=== PATIENT | male | born 1995 | race Asian ===

== ENCOUNTER 2016-12-12 15:12 | Emergency (ER) | payer OTHER ==
[~2016-12-12] VITALS: Ht 170.2 cm; Wt 74.8 kg
[2016-12-12 15:12] VITALS: BP 122/61
== END 2016-12-12 17:01 | disposition home or self-care (01) ==
LOC: M ED 16:10
DX: S83.422A Sprain of lateral collateral ligament of left knee, initial encounter (principal); W51.XXXA Accidental striking against or bumped into by another person, initial encounter; Y92.830 Public park as the place of occurrence of the external cause; Y93.67 Activity, basketball; Y99.9 Unspecified external cause status